=== PATIENT | female | born 1950 | race Caucasian/White ===

== ENCOUNTER 2018-11-07 04:21 | Emergency (ER) | payer MEDICARE, OTHER ==
[~2018-11-07] VITALS: Ht 180.3 cm; Wt 63.6 kg
[2018-11-07 04:29] VITALS: Ht 180.3 cm; Wt 63.6 kg
[2018-11-07] MEDS ORDERED: PREDNISONE20 MG PO (04:32)
[2018-11-07] MEDS ORDERED: ZYLOPRIM300 MG PO (04:34)
[2018-11-07] MEDS ORDERED: PHENERGAN25 M1 PO (04:34)
[2018-11-07] MEDS ORDERED: ZOFRAN8 MG PO (04:35)
[2018-11-07] MEDS ORDERED: RITUXAN (04:38)
[2018-11-07] MEDS ORDERED: VINCRISTINE (04:39)
[2018-11-07] MEDS ORDERED: CYTOXAN (04:39)
[2018-11-07] MEDS ORDERED: ADRIAMYCIN (04:40)
[2018-11-07 05:31] LABS: BASOPHILS 0 % (0-2); EOSINOPHILS 0 % (0-7); HEMATOCRIT 36.7 % (36.0-48.0); HEMOGLOBIN 12.4 g/dL (12-16); IMMATURE GRANULOCYTES 0.2 % (0-5); LYMPHOCYTES 10.4 % (15-50); MCH 28.8 pg (26.0-34.0); MCHC 33.8 g/dL (31.0-37.0); MCV 85.3 fL (80.0-100.0); MEAN PLATELET VOLUME 10.6 fL (7.4-10.4); MONOCYTES 8.8 % (2-11); NEUTROPHILS 80.6 % (40-80); PLATELET COUNT 125 10x3/uL (130-400); RDW 13.5 % (11.5-14.5); WBC 5.1 10x3/uL (4.8-10.8)
[2018-11-07 05:42] LABS: APTT 29.1 SECONDS (22.8-39.4); INR 1.14 (0.85-1.17); PROTIME 14.1 SECONDS (11.6-15.0)
[2018-11-07 05:45] LABS: ALBUMIN 3.4 g/dL (3.4-5.0); ALKALINE PHOSPHATASE 67 U/L (46-116); ALT (SGPT) 16 U/L (10-68); BILIRUBIN - TOTAL 0.76 mg/dL (0.2-1.3); CALC OSMOLALITY 279 mosm/kg (275-300); CALCIUM 8.7 mg/dL (8.5-10.1); CHLORIDE - SERUM 104 mmol/L (98-107); CREATININE - SERUM 0.9 mg/dL (0.6-1.3); GLUCOSE 126 mg/dL (74-106); POTASSIUM - SERUM 3.9 mmol/L (3.5-5.1); PROTEIN - SERUM 6.6 g/dL (6.4-8.2); SODIUM 138 mmol/L (136-145); UREA NITROGEN 18 mg/dL (7-18); eGFR NON AFRICAN AMERICAN 66 mL/min (90-120)
[2018-11-07 05:56] LABS: CKMB 1.2 U/L (0.0-3.6); CREATINE KINASE 32 UL (21-215); MAGNESIUM - SERUM 2.5 mg/dL (1.8-2.4); TROPONIN-I < 0.017 ng/mL (0.000-0.060)
[2018-11-07 07:00] VITALS: BP 125/74
== END 2018-11-07 07:03 | disposition home or self-care (01) ==
LOC: D.ER 04:21
PROVIDERS: Family Medicine
DX: R56.9 Unspecified convulsions (principal); C85.90 Non-Hodgkin lymphoma, unspecified, unspecified site

== ENCOUNTER 2019-05-16 14:37 | Emergency (ER) | payer MEDICARE, OTHER ==
[~2019-05-16] VITALS: Ht 180.3 cm; Wt 63.6 kg
[~2019-05-16 14:37] MED LIST: ADRIAMYCIN; CYTOXAN; PHENERGAN25 M1 PO; PREDNISONE20 MG PO; RITUXAN; VINCRISTINE; ZOFRAN8 MG PO; ZYLOPRIM300 MG PO
[2019-05-16 15:10] VITALS: Ht 180.3 cm; Wt 63.6 kg
[2019-05-16] MEDS ORDERED: CYCLOBENZAPRINE10 MG PO (17:25)
[2019-05-16 17:51] VITALS: BP 160/83
== END 2019-05-16 16:54 | disposition home or self-care (01) ==
LOC: D.ER 14:37
DX: G89.18 Other acute postprocedural pain (principal); M62.838 Other muscle spasm; C81.90 Hodgkin lymphoma, unspecified, unspecified site